=== PATIENT | female | born 1965 | race African-American/Black ===

== ENCOUNTER 2023-01-29 09:24 | Emergency (ER) | payer BC ==
[2023-01-29 10:05] LABS: BASOPHILS PERCENT AUTO 0.4 % (0.0-1.0); EOSINOPHILS ABSOLUTE AUTO 0.1 K/mm3 (0.0-0.4); EOSINOPHILS PERCENT AUTO 1.4 % (0.0-6.0); HEMATOCRIT 35.8 % (37.0-47.0); HEMOGLOBIN 11.9 gm/dl (12.0-16.0); IMMATURE GRAN ABSOLUTE AUTO 0.01 K/mm3 (0.00-0.05); IMMATURE GRAN PERCENT AUTO 0.1 % (0.0-0.4); LYMPHOCYTES ABSOLUTE AUTO 1.8 K/mm3 (1.0-4.8); LYMPHOCYTES PERCENT AUTO 24.4 % (24.0-44.0); MEAN CORPUSCULAR HEMOGLOBIN 31.1 pg (28.0-32.0); MEAN CORPUSCULAR HGB CONC 33.2 g/dl (32.0-36.0); MEAN CORPUSCULAR VOLUME 93.5 fl (83.0-99.0); MEAN PLATELET VOLUME 10.1 fl (9.4-12.3); MONOCYTES ABSOLUTE AUTO 0.8 K/mm3 (0.0-0.8); MONOCYTES PERCENT AUTO 11.4 % (0.0-8.0); NEUTROPHILS ABSOLUTE AUTO 4.5 K/mm3 (1.8-7.7); NEUTROPHILS PERCENT AUTO 62.3 % (41.0-71.0); PLATELET COUNT,PLT 241 K/mm3 (150-400); RED BLOOD CELL COUNT 3.83 M/mm3 (4.10-5.30); WHITE BLOOD CELL COUNT,WBC 7.25 K/mm3 (3.9-11.3)
[2023-01-29] MEDS ORDERED: cefTRIAXone 1 GM in Sodium Chloride 0.9% 100 ML IV ONE (10:17)
[2023-01-29] MEDS ORDERED: Azithromycin 250 MG Tab PO ONE (10:17)
[2023-01-29 10:27] LABS: A/G RATIO 0.7 (1-2); ALBUMIN 3.1 g/dl (3.4-5.0); ANION GAP 12.6 (5-15); BILIRUBIN TOTAL 0.3 mg/dL (0.2-1.0); BUN/CREATININE RATIO 23.8 (14-18); C-REACTIVE PROTEIN 2.5 mg/dL (<1.0); CALCIUM 8.7 mg/dL (8.5-10.1); CREATININE 1.3 mg/dL (0.55-1.02); EST CRCL DRUG DOSING (CG) 39.02 mL/min; MAGNESIUM 2.1 mg/dL (1.8-2.4); POTASSIUM,K 4.6 mEq/L (3.5-5.1); PROTEIN TOTAL,TP 7.4 g/dl (6.4-8.2)
[2023-01-29 10:44] LABS: CORONAVIRUS COVID-19 NAA NEGATIVE (NEGATIVE); INFLUENZA A NAA POSITIVE (NEGATIVE); RESPIRATORY SYNCYTIAL VIR NAA NEGATIVE (NEGATIVE)
== END 2023-01-29 12:01 | disposition home or self-care (01) ==
LOC: JD.ED 09:24
DX: J18.9 Pneumonia, unspecified organism (principal); J10.1 Influenza due to other identified influenza virus with other respiratory manifestations; Z20.822 Contact with and (suspected) exposure to COVID-19
CPT/HCPCS: 0241U; 36415; 71046; 71046-26; 80053; 83735; 85025; 86140; 87040; 96365; 99283-25; A9270-GY; J0696; J3490

== ENCOUNTER 2024-06-10 01:52 | Emergency (ER) | payer BC ==
[2024-06-10 02:34] LABS: BASOPHILS PERCENT AUTO 0.2 % (0.0-1.0); EOSINOPHILS ABSOLUTE AUTO 0.2 K/mm3 (0.0-0.4); EOSINOPHILS PERCENT AUTO 4.7 % (0.0-6.0); HEMATOCRIT 28.9 % (37.0-47.0); HEMOGLOBIN 9.4 gm/dl (12.0-16.0); IMMATURE GRAN ABSOLUTE AUTO 0.01 K/mm3 (0.00-0.05); IMMATURE GRAN PERCENT AUTO 0.2 % (0.0-0.4); LYMPHOCYTES ABSOLUTE AUTO 1.6 K/mm3 (1.0-4.8); LYMPHOCYTES PERCENT AUTO 37.1 % (24.0-44.0); MEAN CORPUSCULAR HGB CONC 32.5 g/dl (32.0-36.0); MEAN CORPUSCULAR VOLUME 92.3 fl (83.0-99.0); MEAN PLATELET VOLUME 10.4 fl (9.4-12.3); MONOCYTES ABSOLUTE AUTO 0.6 K/mm3 (0.0-0.8); MONOCYTES PERCENT AUTO 13.3 % (0.0-8.0); NEUTROPHILS ABSOLUTE AUTO 1.9 K/mm3 (1.8-7.7); NEUTROPHILS PERCENT AUTO 44.5 % (41.0-71.0); PLATELET COUNT,PLT 257 K/mm3 (150-400); RED BLOOD CELL COUNT 3.13 M/mm3 (4.10-5.30); WHITE BLOOD CELL COUNT,WBC 4.28 K/mm3 (3.9-11.3)
[2024-06-10 03:41] LABS: A/G RATIO 0.6 (1-2); ALBUMIN 2.3 g/dl (3.4-5.0); ANION GAP 12.2 (5-15); BILIRUBIN TOTAL 0.4 mg/dL (0.2-1.0); BUN/CREATININE RATIO 24.5 (14-18); CALCIUM 8.5 mg/dL (8.5-10.1); CREATININE 1.1 mg/dL (0.55-1.02); EST CRCL DRUG DOSING (CG) 45.55 mL/min; MAGNESIUM 1.9 mg/dL (1.8-2.4); POTASSIUM,K 4.2 mEq/L (3.5-5.1); PROTEIN TOTAL,TP 6.5 g/dl (6.4-8.2)
== END 2024-06-10 06:45 | disposition home or self-care (01) ==
LOC: JD.ED 01:52
DX: R19.7 Diarrhea, unspecified (principal); Z79.4 Long term (current) use of insulin; Z79.899 Other long term (current) drug therapy
CPT/HCPCS: 80053; 80307; 82550; 83690; 83735; 85025; 87045; 87046; 87493; 87798; 87899; 99283; 99284